=== PATIENT | female | born 1980 ===

== ENCOUNTER 2017-10-13 11:50 | Emergency (ER) | payer MEDICAID ==
--- NOTE | 2017-10-13 12:18 | OBHP ---
Datetime: 10/13/2017 12:13 IP Adm Impression: , intrauterine IP Chief Complaint Other: vaginal spotting IP Admit Plan: Discharge home Admit Comment, IP Provider: at 31weks camre with c/o spotting started yesterday after sex and s ome today, no ctxs, vb, lof+fm,no active blod.pt states her placente low?// obhx 2 x , 1 x c/s pmh de med pnv all nkda psh de soch de see closed,no blood a/p at 29weeks vaginal spotting dc home no sex po hy f/u in clinic in 2-3 da Pelvic Type - PN: Adequate Extremities - PN: Normal Abdomen - PN: Normal Back - PN: Normal Breast - PN: Normal Lungs - PN: Normal Heart - PN: Normal Thyroid - PN: Normal Neurologic - PN: Normal HEENT - PN: Normal General - PN: Normal FHR - Baseline A Provider: 140 Contraction Comments Provider: none Vital Signs Provider: Reviewed; Within Normal Limits NICHD Variability Prov Fetus A: Moderate 6-25bpm NICHD Accel Fetus A IP Provider: [id number] FHR Category Provider Fetus A: Category I Dilatation, Provider: 0 Effacement, Provider: 0 Station, Provider: -3 Genitourinary Exam: Normal DTRs - PN: Normal
--- NOTE | 2017-10-13 12:20 | OBDCSUM ---
Datetime: 10/13/2017 12:16 Discharged to, Provider: Home Follow up at, Provider: 3 days Follow up in weeks, Provider: clinic Discharge Comment, Provider: dc home no sex po hy f/u in clinic in 2-3 da Discharge Diagnosis Prov Other: 29week nst vaginal spooting
[2017-10-13 17:12] VITALS: BP 103/66; PULSE 91; RESP 20; TEMP 97.7
== END 2017-10-13 13:00 | disposition home or self-care (01) ==
LOC: C.EROB 11:50
DX: O26.853 Spotting complicating pregnancy, third trimester (principal); Z3A.29 29 weeks gestation of pregnancy